=== PATIENT | female | born 1955 | race Caucasian/White ===

== ENCOUNTER 2020-04-25 17:43 | Emergency (ER) | payer OTHER ==
[~2020-04-25] VITALS: Ht 170.2 cm; Wt 63.9 kg
--- NOTE | 2020-04-25 18:31 | NUR ---
SOFTWARE TEST MANAGER: PT TO ROOM FROM KIRA MARCIAL
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
[2020-04-25 19:06] VITALS: BP 141/72
[2020-04-25 19:11] LABS: BASOPHILS % (AUTO) 1 % (0-1); EOSINOPHILS % (AUTO) 0 % (1-7); LYMPHOCYTES % (AUTO) 41 % (22-44); MEAN CORPUSCULAR HEMOGLOBIN 32.8 pg (27.0-34.8); MEAN CORPUSCULAR HGB CONC 34.1 g/dL (32.4-35.8); MEAN PLATELET VOLUME 7.3 fL (7.4-10.4); MONOCYTES % (AUTO) 16 % (2-9); NEUTROPHILS % (AUTO) 42 % (42-75); PLATELET COUNT 297 x10^3/uL (130-400); RED BLOOD COUNT 4.07 x10^6/uL (3.82-5.3); RED CELL DISTRIBUTION WIDTH 14.1 % (9.6-15.2)
[2020-04-25 19:14] LABS: MD NO
[2020-04-25 19:14] LABS: MICROSCOPIC INDICATED
[2020-04-25 19:21] LABS: CHLORIDE 106 mmol/L (98-107)
[2020-04-25 19:30] LABS: ALANINE AMINOTRANSFERASE 603 U/L (12-78); ALBUMIN 3.7 g/dL (3.4-5.0); ALKALINE PHOSPHATASE 430 U/L (45-117); ANION GAP 9 mmol/L (5-15); BILIRUBIN,TOTAL 4.7 mg/dL (0.2-1.0); CALCIUM 9.5 mg/dL (8.5-10.1); CREATININE 0.62 mg/dL (0.55-1.02); TOTAL PROTEIN 7.4 g/dL (6.4-8.2)
--- NOTE | 2020-04-25 20:13 | NUR ---
US IN ROOM
--- NOTE | 2020-04-25 20:31 | NUR ---
US COMPLETED. AWAITING RESULTS.
--- NOTE | 2020-04-25 22:10 | NUR ---
Patient/Caregiver given discharge instructions and they have confirmed that they understand the instructions. Patient ambulatory with steady gait.
== END 2020-04-25 22:20 | disposition home or self-care (01) ==
LOC: ED 21:43
DX: E80.6 Other disorders of bilirubin metabolism (principal); R74.01 Elevation of levels of liver transaminase levels; R10.11 Right upper quadrant pain; R11.2 Nausea with vomiting, unspecified
CPT/HCPCS: 36415; 76700; 80053; 80074; 81001; 82248; 83690; 85025; 87086; 99284